=== PATIENT | female | born 1965 | race African-American/Black ===

== ENCOUNTER 2017-12-30 07:49 | Observation (INO) ==
[2017-12-30] MEDS ORDERED: NITROGLYCERIN 2% OINT 1 INCH/GM PACK TOP STA (08:10)
[2017-12-30] MEDS ORDERED: ASPIRIN 325 MG TABLET PO STA (08:10)
[2017-12-30] MEDS ORDERED: ALUM/MAG/SIMETH/LIDO VISC 1:1 30 ML BOTTLE PO STA (08:10)
[2017-12-30] MEDS ORDERED: ONDANSETRON 4 MG/2 ML VIAL IV PRN ×2 (08:10→10:14)
[2017-12-30] MEDS ORDERED: METOPROLOL TARTRATE 5 MG/5 ML VIAL IV STA (08:10)
[2017-12-30] MEDS ORDERED: MORPHINE 4 MG/1 ML VIAL IV PRN (08:10)
[2017-12-30 08:33] LABS: Basophils % 0.5 % (0.0-0.8); Eosinophils % 0.6 % (0.00-10.9); Hematocrit 35.2 VOL% (35.7-47.0); Hemoglobin 12.6 GM/DL (12.0-16.0); Immature Granulocytes % 0.3 %; Immature Granulocytes Absolute 0.02 #; Lymphocytes # 2.2 10*3/uL (1.4-4.0); Lymphocytes % 32.9 % (21.3-54.2); Mean Corpuscular HGB Conc 35.8 GM/DL (32-36); Mean Corpuscular Hemoglobin 30 PG (27-34); Mean Corpuscular Volume 82.8 FL (87-102); Mean Platelet Volume 11.7 FL (9.6-12.0); Monocytes # 0.5 10*3/uL (0.11-0.8); Neutrophils # 3.8 10*3/uL (1.4-7.4); Neutrophils % 57.7 % (38.7-73.9); Platelet Count 145 T/CUMM (130-400); Red Blood Count 4.25 MC/CUMM (3.8-5.5); Red Cell Distribution Width 15.5 % (9.3-17.3); White Blood Count 6.6 T/CUMM (4-12)
[2017-12-30 08:53] LABS: Albumin 3.4 G/DL (3.4-5.0); Bilirubin,Total 0.5 MG/DL (0.2-1.0); Calcium 8.3 MG/DL (8.5-10.1); Potassium 3.6 MMOL/L (3.5-5.1); Total Protein 7.2 G/DL (6.4-8.3)
[2017-12-30 09:40] LABS: PT Patient Result 10.6 SECS; Partial Thromboplastin Time 27.4 SECS (0-40)
[2017-12-30] MEDS ORDERED: SODIUM CHLORIDE 0.9% 1,000 ML IV SCH (10:14)
[2017-12-30] MEDS ORDERED: ACETAMINOPHEN 325 MG TABLET PO PRN (10:14)
[2017-12-30] MEDS ORDERED: KETOROLAC 15 MG/1 ML VIAL IV ONE (15:06)
[2017-12-30 16:14] VITALS: BP 125/87
[2017-12-30] MEDS ORDERED: DOCUSATE SODIUM 100 MG CAPSULE PO SCH (21:00)
[2017-12-31] MEDS ORDERED: PANTOPRAZOLE 40 MG TABLET PO SCH (09:00)
== END 2017-12-30 19:43 | disposition home or self-care (01) ==
LOC: N.EDINP 07:49 → N.ED 07:49 → N.2W 10:11 → N.TELES 16:22
PROVIDERS: ADMIT Internal Medicine; ATTEND Internal Medicine